=== PATIENT | female | born 1960 ===

== ENCOUNTER → 2017-04-04 | Emergency (ER) | payer SELFPAY ==
[~2017-04-04] MED LIST: ONDANSETRON *ODT* 4 MG TABLET SL ONE; VALSARTAN 160 MG TABLET (UD) PO ONE
[2017-04-04 08:01] VITALS: BP 160/123; PULSE 82; TEMP 97.5; BMI 23.6
[2017-04-04 08:12] LABS: PH,URINE 5.5 (4.5-8); URINE BILIRUBIN Negative (NEGATIVE); URINE GLUCOSE (UA) Negative (NEGATIVE); URINE KETONE Negative (NEGATIVE); URINE NITRITE Negative (NEGATIVE); URINE PROTEIN Negative (NEGATIVE); URINE UROBILINOGEN 0.2 (0.2-1.0)
[2017-04-04 08:14] LABS: URINE APPEARANCE SL CLOUDY; URINE BLOOD 2+ (NEGATIVE); URINE COLOR PINK; URINE LEUK ESTERASE TRACE (NEGATIVE)
--- NOTE | 2017-04-04 08:25 | PDOC ---
History of Present Illness - General Chief Complaint: Pain Stated Complaint: RIGHT FLANK PAIN Time Seen by Provider: 04/04/17 07:35 History Source: Patient Exam Limitations: No Limitations (is 0) - History of Present Illness Initial Comments: 04/04/17 08:22 56-year-old female with a history of hypertension and kidney stones here today complaining of right-sided flank pain. Patient states symptoms started yesterday she describes right-sided flank pain radiating to the anterior stomach and groin also noted hematuria today does report some dysuria no fever no chills complaining of nausea but no vomiting states she has been dry heaving. Patient states she is ALLERGIC Toradol and NSAIDs did not take anything today for pain prior to arrival states she did not take her blood pressure medication today she is visiting [facility] and staying with her grandmother currently Past History - Past Medical History Allergies/Adverse Reactions: Allergies Allergy/AdvReac Type Severity Reaction Status Date / Time ketorolac [From Toradol] Allergy Severe Difficulty Verified 04/04/17 07:32 Breathing sumatriptan [From Imitrex] Allergy Severe Difficulty Verified 04/04/17 07:33 Breathing Penicillins Allergy Intermediate Rash Verified 04/04/17 07:32 Home Medications: Ambulatory Orders Valsartan [Diovan] 160 mg PO BID 04/04/17 COPD: No HTN: Yes - Surgical History Appendectomy: Yes - Suicide/Smoking/Psychosocial Hx Smoking History: Never smoked Have you smoked in the past 12 months: No Information on smoking cessation initiated: No Drug/Substance Use Hx: No Substance Use Type: None Review of Systems - Review of Systems Constitutional: No: Chills, Diaphoresis HEENTM: No: Eye Pain Respiratory: No: Cough, Orthopnea Cardiac (ROS): No: Chest Pain, Edema ABD/GI: Yes: Nausea. No: Vomiting : Yes: Burning, Dysuria, Hematuria Musculoskeletal: Yes: Back Pain Integumentary: No: Bruising, Change in Color All Other Systems: Reviewed and Negative *Physical Exam - Vital Signs Last Vital Signs Temp Pulse Resp BP Pulse Ox 97.5 F L 82 16 160/123 04/04/17 07:35 04/04/17 07:35 04/04/17 07:35 04/04/17 07:35 - Physical Exam General Appearance: Yes: Appropriately Dressed Neck: positive: Trachea midline Respiratory/Chest: positive: Lungs Clear, Normal Breath Sounds. negative: Chest Tender Cardiovascular: positive: Regular Rhythm, Regular Rate, S1, S2 Gastrointestinal/Abdominal: positive: Normal Bowel Sounds, Flat, Soft. negative : Tender Musculoskeletal: positive: Normal Inspection, CVA Tenderness (R). negative: CVA Tenderness (L) Extremity: positive: Normal Capillary Refill, Normal Inspection, Normal Range of Motion Integumentary: positive: Normal Color, Dry, Warm Neurologic: positive: Fully Oriented, Alert, Normal Mood/Affect, Motor Strength 08/22 ED Treatment Course - ADDITIONAL ORDERS Additional order review: Laboratory Results 04/04/17 07:52 Urine Color [place] Urine Appearance Sl cloudy Urine pH 5.5 Ur Specific [place] 1.010 Urine Protein Negative Urine Glucose (UA) Negative Urine Ketones Negative Urine Blood 2+ H Urine Nitrite Negative Urine Bilirubin Negative Urine Urobilinogen 0.2 Ur Leukocyte Esterase Trace H - RADIOLOGY Radiology Studies Ordered: Category Date Time Status SPIRAL- RENAL-STONE CT [CT] Stat CT Scan 04/04/17 07:43 Ordered Medical Decision Making - Medical Decision Making 04/04/17 08:24 56-year-old history kidney stones here today complaining of hematuria and right flank pain. Differential diagnosis includes hematuria, UTI, Freddy. Plan CT abdomen and pelvis labs including a UA and pain control Patient suddenly states she has to go had some emergency at home and left the department prior to receiving any further evaluation medications or discharge papers *DC/Admit/Observation/Transfer Diagnosis at time of Disposition: Flank pain - Discharge Dispostion Disposition: ELOPED Condition at time of disposition: Good - Referrals - Patient Instructions - Post Discharge Activity
[2017-04-04 17:06] LABS: URINE RBC >100 /hpf (0-3)
== END | disposition left against medical advice (07) ==
LOC: FER 07:29
DX: R10.31 Right lower quadrant pain (principal); I10 Essential (primary) hypertension; Z87.442 Personal history of urinary calculi
CPT/HCPCS: 81003; 81015; 99282-25